=== PATIENT | female | born 1950 | race Hispanic/Latino ===

== ENCOUNTER → 2018-08-25 | Outpatient (CLI) | payer MEDICARE | END | disposition home or self-care (01) | LOC: SHCH 13:34 | PROVIDERS: ATTEND Internal Medicine Cardiovascular Disease | DX: I10 Essential (primary) hypertension (principal) | CPT/HCPCS: 93306 ==

== ENCOUNTER 2020-09-09 10:48 | Inpatient (IN) | payer MEDICARE, OTHER ==
[~2020-09-09] VITALS: Ht 152.4 cm; Wt 62.6 kg
[2020-09-09 11:55] LABS: HEMATOCRIT 37.6 % (36-48); LYMPHOCYTES % (AUTO) 13.2 % (21.0-51.0); MEAN CORPUSCULAR HEMOGLOBIN 29.8 pg (27.0-33.0); MEAN CORPUSCULAR HGB CONC 34.8 g/dL (32.0-36.0); MEAN CORPUSCULAR VOLUME 85.5 fL (79-99); MONOCYTES % (AUTO) 6.6 % (3.0-13.0); PLATELET COUNT (AUTO) 163 K/uL (130-400); RED CELL DISTRIBUTION WIDTH 11.9 % (11.0-15.5); WHITE BLOOD COUNT (AUTO) 5.3 K/uL (4.8-10.8)
[2020-09-09 12:02] LABS: CREATININE 0.9 mg/dL (0.5-1.5); POTASSIUM 3.6 mmol/L (3.5-5.1)
[2020-09-09 12:08] LABS: ALBUMIN 3.9 g/dL (3.5-5.0); TOTAL PROTEIN, SERUM 7.8 g/dL (6.0-8.3)
[2020-09-09 13:00] LABS: INR 0.91 (0.85-1.15); PARTIAL THROMBOPLASTIN TIME 32.2 SEC (26.3-35.5); PROTHROMBIN TIME 9.9 SEC (9.6-11.6)
[2020-09-09] MEDS ORDERED: SODIUM CHLORIDE 0.9% 1000ML 1,000 ML IV ONE (14:32)
[2020-09-09] MEDS ORDERED: AZITHROMYCIN 500MG+NS 250ML 250 ML IV ONE (14:33)
[2020-09-09] MEDS ORDERED: CEFTRIAXONE SODIUM 1 GM ONE (14:33)
[2020-09-09] MEDS ORDERED: ACETAMINOPHEN 325 MG TAB ONE (14:34)
[2020-09-09] MEDS ORDERED: ONDANSETRON HCL 4 MG/2 ML VIAL ONE (14:51)
[2020-09-09] MEDS ORDERED: IOHEXOL 350 MG/ML 100ML INFUS..BTL IV ONE (15:35)
[2020-09-09 18:09] LABS: APPEARANCE,URINE Clear (CLEAR); BILIRUBIN,URINE Negative (NEGATIVE); COLOR,URINE Yellow (YELLOW); GLUCOSE, URINE (UA) Negative (NEGATIVE); KETONES,URINE Trace mg/dL (NEGATIVE); LEUKOCYTE ESTERASE ,URINE Negative (NEGATIVE); NITRATE,URINE Negative (NEGATIVE); OCCULT BLOOD,URINE Negative (NEGATIVE); PROTEIN,URINE Negative (NEGATIVE); UROBILINOGEN,URINE 0.2 mg/dL (0.2-1.0)
[2020-09-09] MEDS ORDERED: HYDRALAZINE HCL 20 MG/ML VIAL IV PRN (19:00)
[2020-09-09] MEDS ORDERED: ONDANSETRON HCL 4 MG/2 ML VIAL IV PRN (19:00)
[2020-09-09] MEDS ORDERED: GUAIFENESIN-DM 200/20 MG 10 ML PO PRN (19:00)
[2020-09-09] MEDS ORDERED: ACETAMINOPHEN 325 MG TAB PO PRN ×2 (19:00)
[2020-09-09] MEDS ORDERED: CEFTRIAXONE SODIUM 1 GM IVP SCH ×2 (19:15→19:30)
[2020-09-09] MEDS ORDERED: ERGOCALCIFEROL (VITAMIN D2) 50,000 UNIT CAPSULE PO ONE (19:15)
[2020-09-09] MEDS ORDERED: ACETYLCYSTEINE 600 MG CAPSULE ONE (19:46)
[2020-09-09] MEDS ORDERED: FAMOTIDINE 20MG TAB 20 MG TAB ONE (19:46)
[2020-09-09] MEDS ORDERED: ERGOCALCIFEROL (VITAMIN D2) 50,000 UNIT CAPSULE ONE (19:46)
[2020-09-09] MEDS ORDERED: BENZONATATE 100 MG CAPSULE PO ONE (19:47)
[2020-09-09] MEDS ORDERED: ENOXAPARIN SODIUM 40 MG/0.4 ML SYRINGE SQ ONE (19:47)
[2020-09-09] MEDS ORDERED: ENOXAPARIN SODIUM 40 MG/0.4 ML SYRINGE SQ SCH (21:00)
[2020-09-09] MEDS ORDERED: ACETYLCYSTEINE 600 MG CAPSULE PO SCH (21:00)
[2020-09-09] MEDS ORDERED: BENZONATATE 100 MG CAPSULE PO SCH (21:00)
[2020-09-10] MEDS ORDERED: CEFTRIAXONE SODIUM 1 GM ONE (03:44)
[2020-09-10] MEDS ORDERED: SODIUM CHLORIDE 0.9% 50 ML IV ONE (03:45)
[2020-09-10 05:06] LABS: HEMATOCRIT 34.3 % (36-48); LYMPHOCYTES % (AUTO) 21.7 % (21.0-51.0); MEAN CORPUSCULAR HEMOGLOBIN 30.2 pg (27.0-33.0); MEAN CORPUSCULAR HGB CONC 34.7 g/dL (32.0-36.0); MEAN CORPUSCULAR VOLUME 87.1 fL (79-99); MONOCYTES % (AUTO) 6.3 % (3.0-13.0); NEUTROPHILS % (AUTO) 71.8 % (40.0-77.0); PLATELET COUNT (AUTO) 166 K/uL (130-400); RED BLOOD CELL COUNT(AUTO) 3.94 MIL/uL (4.00-5.50); RED CELL DISTRIBUTION WIDTH 11.9 % (11.0-15.5); WHITE BLOOD COUNT (AUTO) 4.8 K/uL (4.8-10.8)
[2020-09-10 05:20] LABS: ALBUMIN 3.3 g/dL (3.5-5.0); BILIRUBIN,TOTAL 0.2 mg/dL (0.2-1.0); CREATININE 0.8 mg/dL (0.5-1.5); CRP QUANTITATIVE 43.2 mg/L (0.00-9.0); POTASSIUM 4.1 mmol/L (3.5-5.1); TOTAL PROTEIN, SERUM 6.9 g/dL (6.0-8.3)
[2020-09-10] MEDS ORDERED: DEXAMETHASONE SOD PHOSPHATE 10MG/ML 1ML VIAL ONE (07:54)
[2020-09-10] MEDS ORDERED: BENZONATATE 100 MG CAPSULE PO ONE (07:55)
[2020-09-10] MEDS ORDERED: ACETYLCYSTEINE 600 MG CAPSULE ONE (07:55)
[2020-09-10] MEDS ORDERED: ASCORBIC ACID 500 MG TAB ONE (07:55)
[2020-09-10] MEDS ORDERED: ENOXAPARIN SODIUM 40 MG/0.4 ML SYRINGE SQ ONE (07:56)
[2020-09-10] MEDS ORDERED: ZINC SULFATE 220 CAPSULE ONE (07:56)
[2020-09-10] MEDS ORDERED: FAMOTIDINE/PF 20 MG/2 ML VIAL IV ONE (07:56)
[2020-09-10] MEDS ORDERED: AZITHROMYCIN 500MG+NS 250ML 250 ML IV SCH (09:00)
[2020-09-10] MEDS: FAMOTIDINE/PF 20 MG/2 ML VIAL IV SCH (09:00)
[2020-09-10] MEDS ORDERED: ZINC SULFATE 220 CAPSULE PO SCH ×2 (09:00)
[2020-09-10] MEDS ORDERED: ASCORBIC ACID 500 MG TAB PO SCH ×2 (09:00)
[2020-09-10] MEDS ORDERED: DEXAMETHASONE SOD PHOSPHATE 4 MG/ML 1ML VIAL IVP SCH ×2 (09:00)
[2020-09-10 10:10] LABS: ABG BASE EXCESS -2.4 mmol/L (-2.0-3.0); ABG HCO3 20.6 mmol/L (21.0-28.0); ABG OXYGEN SATURATION 92.8 % (95.0-99.0); ABG PCO2 31 mmHg (32-45)
[2020-09-10 13:30] VITALS: BP 130/71
[2020-09-10] MEDS ORDERED: LOSA1TAB37 PO (14:06)
[2020-09-10] MEDS ORDERED: ATOR10 PO (14:06)
[2020-09-10 16:37] VITALS: BP 130/83
--- NOTE | 2020-09-10 17:01 | NUR ---
DC PLAN PATIENT IN COVID UNIT. CALLED SPOUSE NUMBER ON FACE SHEET. SAID ITS HIS MOM ROSETTA WANG. PATIENT INDEPENDENT ABLE TO PERFORM ADL'S. PATIENT HAS NO SERVICES OR DME'S. FEELS SAFE TO RETURN HOME.
[2020-09-10 20:49] VITALS: BP 112/53
[2020-09-10] MEDS ORDERED: ACETYLCYSTEINE 600 MG CAPSULE PO SCH (21:00)
[2020-09-11 00:13] VITALS: BP 131/85
[2020-09-11] MEDS ORDERED: ACETAMINOPHEN 325 MG TAB PO PRN ×2 (00:45)
[2020-09-11] MEDS ORDERED: GUAIFENESIN-DM 200/20 MG 10 ML PO PRN (00:45)
[2020-09-11] MEDS ORDERED: BENZONATATE 100 MG CAPSULE PO ONE (00:58)
[2020-09-11 04:13] VITALS: BP 121/70
[2020-09-11 05:03] LABS: EOSINOPHILS % (AUTO) 1.7 % (0.0-8.0); HEMATOCRIT 33.4 % (36-48); MEAN CORPUSCULAR HEMOGLOBIN 29.8 pg (27.0-33.0); MEAN CORPUSCULAR HGB CONC 34.7 g/dL (32.0-36.0); MEAN CORPUSCULAR VOLUME 85.9 fL (79-99); MONOCYTES % (AUTO) 6.1 % (3.0-13.0); PLATELET COUNT (AUTO) 183 K/uL (130-400); RED BLOOD CELL COUNT(AUTO) 3.89 MIL/uL (4.00-5.50); RED CELL DISTRIBUTION WIDTH 11.9 % (11.0-15.5); WHITE BLOOD COUNT (AUTO) 6.5 K/uL (4.8-10.8)
[2020-09-11 05:29] LABS: ALBUMIN 3.2 g/dL (3.5-5.0); BILIRUBIN,TOTAL 0.3 mg/dL (0.2-1.0); CREATININE 0.8 mg/dL (0.5-1.5); POTASSIUM 4.4 mmol/L (3.5-5.1); TOTAL PROTEIN, SERUM 6.8 g/dL (6.0-8.3)
[2020-09-11 07:00] VITALS: BP 132/63
[2020-09-11] MEDS: DEXAMETHASONE SOD PHOSPHATE 4 MG/ML 1ML VIAL IVP SCH (08:34)
[2020-09-11] MEDS: FAMOTIDINE/PF 20 MG/2 ML VIAL IV SCH (08:34)
[2020-09-11] MEDS: BENZONATATE 100 MG CAPSULE PO SCH ×2 (08:34→17:34)
[2020-09-11] MEDS: ENOXAPARIN SODIUM 60 MG/0.6 ML SQ SCH (08:35)
[2020-09-11] MEDS ORDERED: PHARMACY COMMUNICATION MISC SCH ×2 (08:45→11:45)
--- NOTE | 2020-09-11 09:39 | NUR ---
MARTHA PLAN PATIENT IN COVID UNIT. CALLED SPOUSE ON FACE SHEET. IT WAS SON NUMBER ROSETTA WANG [phone]. INDEPENDENT ABLE TO PERFORM ADDL'S. PATIENT HAS NO SERVICES OR DME'S. FEELS SAFE TO RETURN HOME. Addendum: 09/11/20 at 0942 by DALILA MICHEL RN CM Amended: Links added.
[2020-09-11 11:00] VITALS: BP 124/59
--- NOTE | 2020-09-11 11:43 | NUR ---
DR. Manjula MARTINEZ IN ROOM SPEAKING WITH PT. RE:PLAN OF CARE AND ANSWERING QUESTIONS.
--- NOTE | 2020-09-11 13:21 | NUR ---
RESTING IN BED IN RIGHT SIDE-LYING POSITION, RESP.'S EVEN AND UNLABORED. O2 SAT-96%, P-72, PER CONTINUOUS PULSE OXIMETER AT BEDSIDE. CALL LIGHT WITHIN REACH.
[2020-09-11] MEDS ORDERED: SODIUM CHLORIDE 0.9% 250 ML IV ONE (18:10)
--- NOTE | 2020-09-11 18:42 | NUR ---
PLASMA TRANSFUSION STARTED AFTER S/S OF ADVERSE REACTION EXPLAINED TO PT., VERBALIZED UNDERSTANDING. CALL LIGHT WITHIN REACH.
--- NOTE | 2020-09-11 18:48 | NUR ---
TRANSFUSION IN PROGRESS. PT. DENIES ANY C/O AT THIS TIME. CALL LIGHT WITHIN REACH.
--- NOTE | 2020-09-11 19:25 | NUR ---
RECEIVED CALL FROM PT.'S SON, ROSETTA WANG (CONFIRMED WITH PT.), UPDATED ON STATUS AND QUESTIONS ANSWERED.
[2020-09-11 20:20] VITALS: BP 122/60
--- NOTE | 2020-09-11 20:20 | NUR ---
PLASMA TRANSFUSION COMPLETE, NO ADVERSE REACTION NOTED. VITALS WNL. AFEBRILE.
[2020-09-11 23:24] VITALS: BP 113/55
[2020-09-12] MEDS: BENZONATATE 100 MG CAPSULE PO SCH ×3 (00:45→16:07)
--- NOTE | 2020-09-12 01:05 | NUR ---
PLASMA TRANSFUSION IN PROGRESS. DENIES ANY REACTION. VITALS WNL AFEBRILE. CALL LIGHT WITHIN REACH.
[2020-09-12 04:00] VITALS: BP 109/51
[2020-09-12 04:55] LABS: BASOPHILS % (AUTO) 0.1 % (0.0-5.0); HEMATOCRIT 31.8 % (36-48); LYMPHOCYTES % (AUTO) 8.5 % (21.0-51.0); MEAN CORPUSCULAR HEMOGLOBIN 29.8 pg (27.0-33.0); MEAN CORPUSCULAR HGB CONC 34.9 g/dL (32.0-36.0); MEAN CORPUSCULAR VOLUME 85.3 fL (79-99); MONOCYTES % (AUTO) 4.4 % (3.0-13.0); NEUTROPHILS % (AUTO) 86.4 % (40.0-77.0); PLATELET COUNT (AUTO) 199 K/uL (130-400); RED BLOOD CELL COUNT(AUTO) 3.73 MIL/uL (4.00-5.50); RED CELL DISTRIBUTION WIDTH 11.8 % (11.0-15.5); WHITE BLOOD COUNT (AUTO) 9.5 K/uL (4.8-10.8)
[2020-09-12 05:09] LABS: ALBUMIN 3.3 g/dL (3.5-5.0); BILIRUBIN,TOTAL 0.4 mg/dL (0.2-1.0); CREATININE 0.6 mg/dL (0.5-1.5); CRP QUANTITATIVE 63.5 mg/L (0.00-9.0); POTASSIUM 3.7 mmol/L (3.5-5.1); TOTAL PROTEIN, SERUM 7.2 g/dL (6.0-8.3)
[2020-09-12 07:00] VITALS: BP 120/58
[2020-09-12] MEDS: DEXAMETHASONE SOD PHOSPHATE 4 MG/ML 1ML VIAL IVP SCH (08:34)
[2020-09-12] MEDS: FAMOTIDINE/PF 20 MG/2 ML VIAL IV SCH (08:34)
[2020-09-12] MEDS: ENOXAPARIN SODIUM 60 MG/0.6 ML SQ SCH (08:35)
[2020-09-12 11:00] VITALS: BP 115/75
[2020-09-12] MEDS ORDERED: SENNOSIDES 8.6 MG TABLET PO PRN (12:15)
[2020-09-12] MEDS ORDERED: DOCUSATE SODIUM 100 MG CAP PO SCH (12:15)
[2020-09-12 15:00] VITALS: BP 124/75
[2020-09-12] MEDS ORDERED: COMPOUND IV REFRIGERATED 1 EACH IVSOLN MISC PRN (16:00)
[2020-09-12] MEDS ORDERED: REMDESIVIR (EUA) 520 200 MG in SODIUM CHLORIDE 0.9% 250 ML IV ONE (16:00)
[2020-09-12] MEDS: ATORVASTATIN CALCIUM 20 MG TABLET PO SCH (19:28)
[2020-09-12 20:00] VITALS: BP 106/59
[2020-09-13] MEDS: BENZONATATE 100 MG CAPSULE PO SCH ×3 (00:16→17:31)
[2020-09-13 05:08] LABS: EOSINOPHILS % (AUTO) 1.9 % (0.0-8.0); HEMATOCRIT 34.1 % (36-48); MEAN CORPUSCULAR HEMOGLOBIN 30.1 pg (27.0-33.0); MEAN CORPUSCULAR HGB CONC 34.9 g/dL (32.0-36.0); MEAN CORPUSCULAR VOLUME 86.1 fL (79-99); MONOCYTES % (AUTO) 4.9 % (3.0-13.0); NEUTROPHILS % (AUTO) 82.7 % (40.0-77.0); PLATELET COUNT (AUTO) 235 K/uL (130-400); RED BLOOD CELL COUNT(AUTO) 3.96 MIL/uL (4.00-5.50); RED CELL DISTRIBUTION WIDTH 11.9 % (11.0-15.5)
[2020-09-13 05:31] LABS: ALANINE AMINOTRANSFERASE 39 U/L (12-78); ALBUMIN 3.1 g/dL (3.5-5.0); ASPARTATE AMINOTRANSFERASE 45 U/L (10-37); BILIRUBIN,DIRECT 0.1 mg/dL (0.0-0.3); BILIRUBIN,TOTAL 0.4 mg/dL (0.2-1.0); CARBON DIOXIDE 24 mmol/L (21-32); CHLORIDE 102 mmol/L (101-111); CREATININE 0.7 mg/dL (0.5-1.5); GLOMERULAR FILTR. RATE CALC 88 mL/min (>60); GLUCOSE,RANDOM 108 mg/dL (70-105); LACTATE DEHYDROGENASE 457 U/L (81-234); POTASSIUM 3.9 mmol/L (3.5-5.1); SODIUM SERUM 138 mmol/L (136-145); TOTAL PROTEIN, SERUM 7.1 g/dL (6.0-8.3); UREA NITROGEN, BLOOD 16 mg/dL (7-18)
[2020-09-13] MEDS: PHARMACY COMMUNICATION MISC SCH (06:00)
[2020-09-13 08:00] VITALS: BP 132/68
[2020-09-13] MEDS: FAMOTIDINE/PF 20 MG/2 ML VIAL IV SCH (09:00)
[2020-09-13 12:00] VITALS: BP 121/61
[2020-09-13] MEDS: DOCUSATE SODIUM 100 MG CAP PO SCH ×3 (12:00→21:40)
[2020-09-13] MEDS: SENNOSIDES 8.6 MG TABLET PO SCH ×2 (12:00→21:42)
[2020-09-13 16:00] VITALS: BP 132/69
[2020-09-13] MEDS: REMDESIVIR (EUA) 520 100 MG in SODIUM CHLORIDE 0.9% 250 ML IV SCH (17:31)
[2020-09-13 19:00] VITALS: BP 130/69
[2020-09-13] MEDS: ATORVASTATIN CALCIUM 20 MG TABLET PO SCH (21:40)
[2020-09-13] MEDS: ENOXAPARIN SODIUM 60 MG/0.6 ML SQ SCH (21:43)
[2020-09-13 23:00] VITALS: BP 130/59
[2020-09-14] MEDS: BENZONATATE 100 MG CAPSULE PO SCH ×4 (00:07→23:19)
[2020-09-14 03:00] VITALS: BP 110/46
[2020-09-14 04:39] LABS: BASOPHILS % (AUTO) 0.1 % (0.0-5.0); EOSINOPHILS % (AUTO) 0.1 % (0.0-8.0); HEMATOCRIT 34.5 % (36-48); LYMPHOCYTES % (AUTO) 10.8 % (21.0-51.0); MEAN CORPUSCULAR HEMOGLOBIN 29.8 pg (27.0-33.0); MEAN CORPUSCULAR HGB CONC 34.5 g/dL (32.0-36.0); MEAN CORPUSCULAR VOLUME 86.5 fL (79-99); MONOCYTES % (AUTO) 4.8 % (3.0-13.0); NEUTROPHILS % (AUTO) 83.5 % (40.0-77.0); PLATELET COUNT (AUTO) 262 K/uL (130-400); RED BLOOD CELL COUNT(AUTO) 3.99 MIL/uL (4.00-5.50); RED CELL DISTRIBUTION WIDTH 11.9 % (11.0-15.5); WHITE BLOOD COUNT (AUTO) 9.8 K/uL (4.8-10.8)
[2020-09-14 04:52] LABS: ALANINE AMINOTRANSFERASE 38 U/L (12-78); ALBUMIN 2.9 g/dL (3.5-5.0); ASPARTATE AMINOTRANSFERASE 45 U/L (10-37); BILIRUBIN,DIRECT 0.1 mg/dL (0.0-0.3); BILIRUBIN,TOTAL 0.6 mg/dL (0.2-1.0); CARBON DIOXIDE 23 mmol/L (21-32); CHLORIDE 101 mmol/L (101-111); CREATININE 0.7 mg/dL (0.5-1.5); GLOMERULAR FILTR. RATE CALC 88 mL/min (>60); GLUCOSE,RANDOM 88 mg/dL (70-105); LACTATE DEHYDROGENASE 486 U/L (81-234); POTASSIUM 4.1 mmol/L (3.5-5.1); SODIUM SERUM 135 mmol/L (136-145); TOTAL PROTEIN, SERUM 6.5 g/dL (6.0-8.3); UREA NITROGEN, BLOOD 21 mg/dL (7-18)
[2020-09-14] MEDS: PHARMACY COMMUNICATION MISC SCH (06:00)
[2020-09-14] MEDS: DOCUSATE SODIUM 100 MG CAP PO SCH ×3 (06:00→20:49)
[2020-09-14 08:30] VITALS: BP 131/54
[2020-09-14] MEDS: FAMOTIDINE/PF 20 MG/2 ML VIAL IV SCH (09:41)
[2020-09-14] MEDS: DEXAMETHASONE 4 MG TAB PO SCH (09:42)
[2020-09-14] MEDS: ENOXAPARIN SODIUM 60 MG/0.6 ML SQ SCH ×2 (09:42→19:43)
[2020-09-14 12:51] VITALS: BP 136/65
[2020-09-14 16:30] VITALS: BP 125/47
[2020-09-14] MEDS: REMDESIVIR (EUA) 520 100 MG in SODIUM CHLORIDE 0.9% 250 ML IV SCH (16:48)
[2020-09-14 19:00] VITALS: BP 139/60
[2020-09-14] MEDS: SENNOSIDES 8.6 MG TABLET PO SCH (19:43)
[2020-09-14] MEDS: ATORVASTATIN CALCIUM 20 MG TABLET PO SCH (19:43)
[2020-09-14 23:00] VITALS: BP 122/60
[2020-09-15 03:00] VITALS: BP 127/59
[2020-09-15 05:08] LABS: EOSINOPHILS % (AUTO) 0.1 % (0.0-8.0); HEMATOCRIT 35.3 % (36-48); LYMPHOCYTES % (AUTO) 10.9 % (21.0-51.0); MEAN CORPUSCULAR HEMOGLOBIN 29.4 pg (27.0-33.0); MEAN CORPUSCULAR HGB CONC 34.3 g/dL (32.0-36.0); MEAN CORPUSCULAR VOLUME 85.7 fL (79-99); MONOCYTES % (AUTO) 6.1 % (3.0-13.0); NEUTROPHILS % (AUTO) 81.7 % (40.0-77.0); PLATELET COUNT (AUTO) 302 K/uL (130-400); RED BLOOD CELL COUNT(AUTO) 4.12 MIL/uL (4.00-5.50); RED CELL DISTRIBUTION WIDTH 11.6 % (11.0-15.5); WHITE BLOOD COUNT (AUTO) 7.4 K/uL (4.8-10.8)
[2020-09-15 05:28] LABS: ALBUMIN 2.9 g/dL (3.5-5.0); BILIRUBIN,DIRECT 0.1 mg/dL (0.0-0.3); BILIRUBIN,TOTAL 0.6 mg/dL (0.2-1.0); CREATININE 0.7 mg/dL (0.5-1.5); TOTAL PROTEIN, SERUM 6.6 g/dL (6.0-8.3)
[2020-09-15] MEDS: DOCUSATE SODIUM 100 MG CAP PO SCH ×3 (05:34→20:49)
[2020-09-15] MEDS: PHARMACY COMMUNICATION MISC SCH (06:00)
[2020-09-15 07:30] VITALS: BP 134/48
[2020-09-15] MEDS: DEXAMETHASONE 4 MG TAB PO SCH (09:47)
[2020-09-15] MEDS: ENOXAPARIN SODIUM 60 MG/0.6 ML SQ SCH ×2 (09:47→20:49)
[2020-09-15] MEDS: FAMOTIDINE/PF 20 MG/2 ML VIAL IV SCH (09:47)
[2020-09-15] MEDS: BENZONATATE 100 MG CAPSULE PO SCH ×2 (09:47→17:56)
[2020-09-15 12:00] VITALS: BP 133/65
[2020-09-15] MEDS ORDERED: SODIUM CHLORIDE 0.9% 250 ML IV ONE (16:28)
[2020-09-15 16:30] VITALS: BP 137/69
[2020-09-15] MEDS: REMDESIVIR (EUA) 520 100 MG in SODIUM CHLORIDE 0.9% 250 ML IV SCH (17:56)
[2020-09-15 19:56] VITALS: BP 133/62
[2020-09-15] MEDS: ATORVASTATIN CALCIUM 20 MG TABLET PO SCH (20:48)
[2020-09-15] MEDS: SENNOSIDES 8.6 MG TABLET PO SCH (20:49)
[2020-09-15 23:20] VITALS: BP 133/58
[2020-09-16] MEDS: BENZONATATE 100 MG CAPSULE PO SCH ×3 (00:21→14:03)
[2020-09-16 03:24] VITALS: BP 145/67
[2020-09-16] MEDS: PHARMACY COMMUNICATION MISC SCH (06:00)
[2020-09-16] MEDS: DOCUSATE SODIUM 100 MG CAP PO SCH ×3 (06:00→20:52)
[2020-09-16 08:25] VITALS: BP 124/61
[2020-09-16] MEDS: FAMOTIDINE/PF 20 MG/2 ML VIAL IV SCH (08:43)
[2020-09-16] MEDS: DEXAMETHASONE 4 MG TAB PO SCH (08:43)
[2020-09-16] MEDS: ENOXAPARIN SODIUM 60 MG/0.6 ML SQ SCH ×2 (08:47→20:51)
[2020-09-16 09:36] LABS: BASOPHILS % (AUTO) 0.1 % (0.0-5.0); EOSINOPHILS % (AUTO) 0.1 % (0.0-8.0); HEMATOCRIT 34.2 % (36-48); LYMPHOCYTES % (AUTO) 10.4 % (21.0-51.0); MEAN CORPUSCULAR HEMOGLOBIN 30.1 pg (27.0-33.0); MEAN CORPUSCULAR HGB CONC 34.5 g/dL (32.0-36.0); MEAN CORPUSCULAR VOLUME 87.2 fL (79-99); MONOCYTES % (AUTO) 6.4 % (3.0-13.0); NEUTROPHILS % (AUTO) 81.1 % (40.0-77.0); PLATELET COUNT (AUTO) 348 K/uL (130-400); RED BLOOD CELL COUNT(AUTO) 3.92 MIL/uL (4.00-5.50); RED CELL DISTRIBUTION WIDTH 12.2 % (11.0-15.5); WHITE BLOOD COUNT (AUTO) 8.3 K/uL (4.8-10.8)
[2020-09-16 09:51] LABS: ALBUMIN 2.9 g/dL (3.5-5.0); BILIRUBIN,DIRECT 0.2 mg/dL (0.0-0.3); BILIRUBIN,TOTAL 0.5 mg/dL (0.2-1.0); CREATININE 0.6 mg/dL (0.5-1.5); POTASSIUM 4.1 mmol/L (3.5-5.1); TOTAL PROTEIN, SERUM 6.1 g/dL (6.0-8.3)
--- NOTE | 2020-09-16 10:09 | NUR ---
assisted patient up to rr o2 sat 78 on 02 at 2l. compensated back up to 96 on 2l.
[2020-09-16 12:28] VITALS: BP 126/68
--- NOTE | 2020-09-16 13:09 | NUR ---
RDSCREEN - LOS X 7, COVID 19 INFECTION Pt admitted with COVID infection, Acute respiratory failure. Pt tolerating Heart Healthy diet order with no report of GI distress. Poor to fair PO intake at 50%. PO intake <75% x 7 days. Overweight status with BMI of 27.9. Monitored labs: Na 135, BG 125, Alb 2.9. Lovenox, Decadron, Pepcid, Lipitor, Remdesivir medications in place. Recommend Ensure BID Recommend continue Heart healthy diet order RD to continue to monitor. Addendum: 09/16/20 at [address] Amended: Links added.
[2020-09-16] MEDS: REMDESIVIR (EUA) 520 100 MG in SODIUM CHLORIDE 0.9% 250 ML IV SCH (14:03)
--- NOTE | 2020-09-16 14:37 | NUR ---
DC PLAN SPOKE TO PATIENT SON. HE HAD QUESTIONS REGARDING DC PLAN AND CHOICES AVAILABLE. EXPLAINED ABOUT QUALIFYING FOR HOME O2. LET HIM KNOW ABOUT 2 FACILITY ACCEPTING COVID POSITIVE. [facility] IN [place]. SAID HE WILL TALK TO MOTHER REGARDING WHAT SHE WOULD LIKE TO DO. AT THIS TIME PLAN TO RETURN HOME. Addendum: 09/16/20 at 1440 by DALILA MICHEL RN CM Amended: Links added.
[2020-09-16 16:30] VITALS: BP 138/69
[2020-09-16 20:00] VITALS: BP_SYST 114; BP_SYST 128; BP_DIAS 59; BP_DIAS 66
[2020-09-16] MEDS: ATORVASTATIN CALCIUM 20 MG TABLET PO SCH (20:50)
[2020-09-16] MEDS: SENNOSIDES 8.6 MG TABLET PO SCH (20:51)
[2020-09-17] VITALS (7 sets, daily range): BP systolic 111–137; BP diastolic 52–74
[2020-09-17] MEDS: BENZONATATE 100 MG CAPSULE PO SCH ×4 (00:47→21:35)
[2020-09-17 04:58] LABS: BASOPHILS % (AUTO) 0.2 % (0.0-5.0); EOSINOPHILS % (AUTO) 0.2 % (0.0-8.0); HEMATOCRIT 35.9 % (36-48); MEAN CORPUSCULAR HEMOGLOBIN 29.8 pg (27.0-33.0); MEAN CORPUSCULAR HGB CONC 34.8 g/dL (32.0-36.0); MEAN CORPUSCULAR VOLUME 85.7 fL (79-99); MONOCYTES % (AUTO) 6.5 % (3.0-13.0); NEUTROPHILS % (AUTO) 80.1 % (40.0-77.0); PLATELET COUNT (AUTO) 397 K/uL (130-400); RED BLOOD CELL COUNT(AUTO) 4.19 MIL/uL (4.00-5.50); RED CELL DISTRIBUTION WIDTH 11.8 % (11.0-15.5); WHITE BLOOD COUNT (AUTO) 10.4 K/uL (4.8-10.8)
[2020-09-17 05:22] LABS: ALBUMIN 3.1 g/dL (3.5-5.0); BILIRUBIN,TOTAL 0.6 mg/dL (0.2-1.0); CREATININE 0.7 mg/dL (0.5-1.5); CRP QUANTITATIVE 24.9 mg/L (0.00-9.0); TOTAL PROTEIN, SERUM 6.5 g/dL (6.0-8.3)
[2020-09-17] MEDS: PHARMACY COMMUNICATION MISC SCH (06:00)
[2020-09-17] MEDS: DOCUSATE SODIUM 100 MG CAP PO SCH ×4 (06:33→21:44)
[2020-09-17] MEDS: FAMOTIDINE/PF 20 MG/2 ML VIAL IV SCH (09:38)
[2020-09-17] MEDS: DEXAMETHASONE 4 MG TAB PO SCH (09:38)
[2020-09-17] MEDS: ENOXAPARIN SODIUM 60 MG/0.6 ML SQ SCH ×2 (09:39→21:36)
--- NOTE | 2020-09-17 10:20 | NUR ---
ASSISTED PATIENT UP TO CHAIR IN NO DISTRESS OTHER THAN MILD SOB WITH EXERTION SATING 90% ON 2L VIA N.C. DENIES ANY DISTRESS AT THIS TIME.
--- NOTE | 2020-09-17 12:47 | NUR ---
DCP TO [facility]. MANY QUESTIONS, LONG DISCUSSION LONG DISCUSSION AT BEDSIDE W DR. MARTINEZ RE DC PLAN PATIENT WANTS [facility], EXPLAINED NOT A [facility] CANDIDATE. CURRENTLY ON 2 -3 [facility], PATIENT STATES HAS NO ONE OT HELP HER AT HOME AND DOES NOT WANT TO GO TO [facility]. ASKED IF OK TO SUBMIT TO [facility] AND HAVE JANA SPEAK TO HER. VERBAL WILLIS WITNESSED BY DR. MARTINEZ CALL RECD FROM SON, STATES PATIENT DOSNT WANT TO GO TO [facility], CIRCLED BACK AND CONFIRMED YES PATIENT DOES AGREE TO REFERRAL. REFERRAL SUBMITTED INCLUDING [facility]. WILL FOLLOW UP Addendum: 09/18/20 at 1257 by CARMEN LILLY RN Amended: Links added.
[2020-09-17] MEDS ORDERED: LORAZEPAM 0.5 MG TABLET PO PRN (13:30)
--- NOTE | 2020-09-17 14:20 | NUR ---
ASSISTED PATIENT TO PRONE POSITION STATES FEELS BETTER AND CAN BREATH WITHOUT BETTER. PATIENT SITTING UP IN BED SATS ADEQUATELY 96% ON 2L. VIA N.C. NO DISTRESS OBSERVED. OTHER THAN MILD SOB WITH EXERTION THAT RESOLVES WITHIN 1-2 MINUTES.
[2020-09-17] MEDS: SENNOSIDES 8.6 MG TABLET PO SCH ×2 (21:00→21:34)
[2020-09-17] MEDS: ATORVASTATIN CALCIUM 20 MG TABLET PO SCH (21:34)
[2020-09-18 03:18] VITALS: BP 113/71
[2020-09-18 05:19] LABS: BASOPHILS % (AUTO) 0.4 % (0.0-5.0); EOSINOPHILS % (AUTO) 0.3 % (0.0-8.0); HEMATOCRIT 36.2 % (36-48); LYMPHOCYTES % (AUTO) 7.4 % (21.0-51.0); MEAN CORPUSCULAR HEMOGLOBIN 29.6 pg (27.0-33.0); MEAN CORPUSCULAR HGB CONC 34.5 g/dL (32.0-36.0); MEAN CORPUSCULAR VOLUME 85.8 fL (79-99); MONOCYTES % (AUTO) 5.3 % (3.0-13.0); NEUTROPHILS % (AUTO) 80.4 % (40.0-77.0); PLATELET COUNT (AUTO) 420 K/uL (130-400); RED BLOOD CELL COUNT(AUTO) 4.22 MIL/uL (4.00-5.50); RED CELL DISTRIBUTION WIDTH 11.9 % (11.0-15.5); WHITE BLOOD COUNT (AUTO) 11.8 K/uL (4.8-10.8)
[2020-09-18 05:48] LABS: CARBON DIOXIDE 26 mmol/L (21-32); CHLORIDE 101 mmol/L (101-111); CREATININE 0.7 mg/dL (0.5-1.5); GLOMERULAR FILTR. RATE CALC 88 mL/min (>60); GLUCOSE,RANDOM 137 mg/dL (70-105); LACTATE DEHYDROGENASE 346 U/L (81-234); POTASSIUM 4.6 mmol/L (3.5-5.1); SODIUM SERUM 135 mmol/L (136-145); UREA NITROGEN, BLOOD 17 mg/dL (7-18)
[2020-09-18] MEDS: DOCUSATE SODIUM 100 MG CAP PO SCH ×4 (06:00→21:25)
[2020-09-18 07:59] VITALS: BP 143/61
[2020-09-18] MEDS: DEXAMETHASONE 4 MG TAB PO SCH (08:37)
[2020-09-18] MEDS: FAMOTIDINE/PF 20 MG/2 ML VIAL IV SCH (08:38)
[2020-09-18] MEDS: BENZONATATE 100 MG CAPSULE PO SCH ×3 (08:40→23:57)
[2020-09-18] MEDS: ENOXAPARIN SODIUM 60 MG/0.6 ML SQ SCH ×2 (08:40→21:18)
[2020-09-18 12:14] VITALS: BP 125/63
[2020-09-18] MEDS ORDERED: ALBUTEROL INHALER 90MCG/INH IH PRN (12:30)
[2020-09-18 16:10] VITALS: BP 136/67
[2020-09-18 20:03] VITALS: BP 136/67
[2020-09-18] MEDS: SENNOSIDES 8.6 MG TABLET PO SCH ×2 (21:00→21:17)
[2020-09-18] MEDS: ATORVASTATIN CALCIUM 20 MG TABLET PO SCH (21:17)
[2020-09-19] VITALS (7 sets, daily range): BP systolic 118–134; BP diastolic 61–75
[2020-09-19] MEDS: DOCUSATE SODIUM 100 MG CAP PO SCH ×3 (05:26→20:38)
[2020-09-19 05:43] LABS: CREATININE 0.6 mg/dL (0.5-1.5)
[2020-09-19] MEDS ORDERED: FAMOTIDINE 20MG TAB 20 MG TAB ONE (08:37)
[2020-09-19] MEDS: ENOXAPARIN SODIUM 40 MG/0.4 ML SYRINGE SQ SCH ×2 (09:12→20:47)
[2020-09-19] MEDS: FAMOTIDINE 20MG TAB 20 MG TAB PO SCH (09:13)
[2020-09-19] MEDS: DEXAMETHASONE 4 MG TAB PO SCH (09:13)
[2020-09-19] MEDS: BENZONATATE 100 MG CAPSULE PO SCH ×3 (09:14→20:38)
[2020-09-19] MEDS: ATORVASTATIN CALCIUM 20 MG TABLET PO SCH (20:38)
[2020-09-19] MEDS: SENNOSIDES 8.6 MG TABLET PO SCH (20:48)
[2020-09-20 04:19] VITALS: BP 131/68
[2020-09-20 05:09] LABS: HEMATOCRIT 36.8 % (36-48)
[2020-09-20 05:17] LABS: CREATININE 0.7 mg/dL (0.5-1.5); CRP QUANTITATIVE 5.2 mg/L (0.00-9.0); POTASSIUM 4.4 mmol/L (3.5-5.1)
[2020-09-20] MEDS: DOCUSATE SODIUM 100 MG CAP PO SCH ×2 (05:33→09:03)
[2020-09-20 08:00] VITALS: BP 134/69
[2020-09-20] MEDS: FAMOTIDINE 20MG TAB 20 MG TAB PO SCH (08:59)
[2020-09-20] MEDS: BENZONATATE 100 MG CAPSULE PO SCH (08:59)
[2020-09-20] MEDS ORDERED: SENNOSIDES 8.6 MG TABLET PO SCH (09:00)
[2020-09-20] MEDS: ENOXAPARIN SODIUM 40 MG/0.4 ML SYRINGE SQ SCH (09:03)
[2020-09-20 11:34] VITALS: BP 133/68
--- NOTE | 2020-09-20 14:02 | NUR ---
RD FOLLOW UP Pt tolerating Heart Healthy diet order, Ensure BID. Good PO intake at 100%. LBM 09/15/20, constipation. Lovenox, Pepcid, Tessalon, Lipitor medications in place. Monitored labs: WBC 11.8, BG 144, Ca 8.0, Ferritin 728, LDH 402, Alb 3.1. Recommend continue current diet order Recommend stool softener/laxative as medically feasible. RD to continue to monitor. Please notify as additional nutrition concerns arise. Thank you.
[2020-09-20 15:00] VITALS: BP 133/58
--- NOTE | 2020-09-20 17:49 | NUR ---
JAKE WHITING. PRATEEK MARIN, MED REC SENT TO [facility], CHART COPIED, JESSICA BARRAGAN AWARE Addendum: 09/20/20 at 1750 by CARMEN LILLY RN CM Amended: Links added.
--- NOTE | 2020-09-20 18:19 | NUR ---
PT IV REMOVED AND REPORT GIVEN TO [facility] STAFF. PT STATES UNDERSTANDING OF TRANSPORT TO THE FACILITY BY EMS WITH ARE HERE NOW. PT TRANSPORTED WITH [address]. A/O X4 WITH NO COMPLAINTS OF PAIN OR RESP DIFFICULTY.
== END 2020-09-20 18:37 | DRG 177 ==
LOC: EDH 10:48 → EDHIP 18:48 → 2AH 09-10 13:19
PROVIDERS: ADMIT Internal Medicine; ATTEND Internal Medicine
PROC: XW13325 Transfusion of Convalescent Plasma (Nonautologous) into Peripheral Vein, Percutaneous Approach, New Technology Group 5 (ICD-10-PCS; principal; 2020-09-11)
PROC: XW033E5 Introduction of Remdesivir Anti-infective into Peripheral Vein, Percutaneous Approach, New Technology Group 5 (ICD-10-PCS; 2020-09-12)
DX: U07.1 COVID-19 (principal); J12.89 Other viral pneumonia; J96.01 Acute respiratory failure with hypoxia; E87.1 Hypo-osmolality and hyponatremia; R55 Syncope and collapse; E78.00 Pure hypercholesterolemia, unspecified; E78.5 Hyperlipidemia, unspecified; E86.1 Hypovolemia; I13.10 Hypertensive heart and chronic kidney disease without heart failure, with stage 1 through stage 4 chronic kidney disease, or unspecified chronic kidney disease; M19.90 Unspecified osteoarthritis, unspecified site; M47.812 Spondylosis without myelopathy or radiculopathy, cervical region; M47.815 Spondylosis without myelopathy or radiculopathy, thoracolumbar region; N18.2 Chronic kidney disease, stage 2 (mild); Z79.899 Other long term (current) drug therapy
CPT/HCPCS: 36415; 36430; 36600; 70450; 71045; 71275; 72125; 80048; 80053; 80076; 81003; 82248; 82550; 82728; 82803; 82948; 83615; 83880; 84145; 84484; 85014; 85018; 85025; 85378; 85610; 85730; 86140; 86850; 86900; 86901; 86927; 87426; 87804; 93005; 94760; G0378; J0456; J0696; J1100; J1650; J2405; J3490; J7030; J7050; J8540; Q9967; U0003

== ENCOUNTER 2023-08-26 07:38 | Emergency (ER) | payer MEDICARE, OTHER ==
[~2023-08-26] VITALS: Ht 152.4 cm; Wt 68.9 kg
[~2023-08-26 07:38] MED LIST: ATOR10 PO; LOSA1TAB37 PO
[2023-08-26] MEDS ORDERED: LABETALOL 20MG SYG IV ONE (08:00)
[2023-08-26 08:35] LABS: BASOPHILS # (AUTO) 0.03 K/uL (0.00-0.20); BASOPHILS % (AUTO) 0.5 % (0.0-5.0); EOSINOPHILS # (AUTO) 0.16 K/uL (0.00-0.70); EOSINOPHILS % (AUTO) 2.6 % (0.0-8.0); HEMATOCRIT 39.1 % (36-48); IMMATURE GRANULOCYTE ABSOLUTE 0.02 K/uL (0-1); LYMPHOCYTES # (AUTO) 1.5 K/uL (1.0-4.8); LYMPHOCYTES % (AUTO) 24.4 % (21.0-51.0); MEAN CORPUSCULAR HEMOGLOBIN 31.1 pg (27.0-33.0); MEAN CORPUSCULAR HGB CONC 34.3 g/dL (32.0-36.0); MEAN CORPUSCULAR VOLUME 90.7 fL (79-99); MONOCYTES # (AUTO) 0.5 K/uL (0.1-1.0); MONOCYTES % (AUTO) 8.3 % (3.0-13.0); NEUTROPHILS % (AUTO) 63.9 % (40.0-77.0); PLATELET COUNT (AUTO) 206 K/uL (130-400); RED BLOOD CELL COUNT(AUTO) 4.31 MIL/uL (4.00-5.50); RED CELL DISTRIBUTION WIDTH 11.9 % (11.0-15.5); WHITE BLOOD COUNT (AUTO) 6.3 K/uL (4.8-10.8)
[2023-08-26] MEDS ORDERED: LABE100T7 PO (08:41)
[2023-08-26] MEDS ORDERED: TETRACAINE HCL 0.5% 4 ML OPHTH SOLN ONE (08:48)
[2023-08-26] MEDS ORDERED: FLUORESCEIN SODIUM 1 STRIP STRIP ONE (08:48)
[2023-08-26 08:56] LABS: ALBUMIN 4.1 g/dL (3.5-5.0); BILIRUBIN,TOTAL 0.5 mg/dL (0.2-1.0); CREATININE 0.7 mg/dL (0.5-1.5); POTASSIUM 3.8 mmol/L (3.5-5.1); TOTAL PROTEIN, SERUM 7.4 g/dL (6.0-8.3)
[2023-08-26 08:58] VITALS: BP 172/76; PULSE 61; RESP 17; O2SAT 97
== END 2023-08-26 09:25 | disposition home or self-care (01) ==
LOC: EDH 07:38
DX: H11.32 Conjunctival hemorrhage, left eye (principal); I10 Essential (primary) hypertension; E78.00 Pure hypercholesterolemia, unspecified; Z79.899 Other long term (current) drug therapy
CPT/HCPCS: 36415; 80053; 85025